=== PATIENT | male | born 1970 | race Caucasian/White ===

== ENCOUNTER 2025-01-26 18:04 | Inpatient (IN) ==
--- NOTE | 2025-01-26 19:05 | Emergency Department Note ---
Impression & Plan Hemorrhage after tooth extraction ED Provider Note NAME: PAULO CHAVEZ AGE: 54 SEX: M : 1970 ARRIVES VIA: Ambulance INFORMANT: Patient, ED PROVIDER(S): Alejandra Cabrera MD CHIEF COMPLAINT: Bleeding HPI: This is a 54-year-old male presenting for uncontrolled bleeding from with wisdom teeth removal. Patient had forward to be removed today at an outpatient dental office. He took out the gauze and there was significant bleeding that was uncontrolled. It was coming out of his mouth. ROS: See above HPI for pertinent positives & negatives. A total of 10 systems reviewed and were otherwise negative. PAST MEDICAL HISTORY: See Below PAST SURGICAL HISTORY: See Below FAMILY HISTORY: See Below SOCIAL HISTORY: See Below HOME MEDICATIONS: See Below ALLERGIES: See Below VITALS: See Below PHYSICAL EXAMINATION: General: resting comfortably in no acute distress Head: Normocephalic and atraumatic Eyes: Normal inspection, extraocular muscles intact Ear, nose, throat: Swollen lower lip, bleeding 2 seconds x 4 Neck: Normal range of motion Respiratory: lungs clear to auscultation bilaterally Cardiovascular: Regular rate/rhythm, no murmur GI: soft, nontender, no guarding or rebound Extremities: nontender, moves all extremities Neuro: The patient awake and alert, appropriately conversive, no focal deficits, symmetric faces Skin: Warm, dry, and intact MEDICAL DECISION MAKING: This is a 54-year-old male presenting for bleeding from with deep. He has all 4 areas that are slowly oozing. Top sockets are slow oozing, bottom 2 are more brisk. - Patient initially started with TXA mouthwash. This was initially unsuccessful. - Trialed TXA soaked gauze and pressure. This did help the top 2 teeth but the bottom teeth were still bleeding. - Discussed with Dr. Ayden Jesus who states he is not available for consultation currently but could be there in the morning. He recommends discussion with his FS physicians directly. Discussed with Dr. Vinson, who advised if uncontrolled bleeding to do lidocaine with epinephrine injection just posterior/lateral to the last molars -Surgicel was used to pack the bottom sockets. This is helped the bleeding. He is now having no significant symptoms. - Will discharge patient home -Patient expresses concern as he is blind bilaterally. He states he does not know how to take the medication as they are not tactilely label for him. He notes that he was given multiple pills with clear instruction and he cannot read the instructions. - Discussed case management who states that patient's county home demonstrator/help would require PCP referral there is nothing from ER that can be arranged - Attempted to call HIPAA contact who does not answer. Patient is uncomfortable with discharge home due to safety concerns -Discussed with Dr. Poole Differential diagnosis: Dry socket, hemorrhage after tooth extraction, Eleuterio's angina Diagnostics interpreted by me: ECG: None Cardiac Monitoring: An order was placed for continuous cardiac monitoring. The monitor shows a rate of 88 with sinus rhythm. Past Med/Surg History Problem List Hemorrhage after tooth extraction (Acute) Social History Smoking Status: Never smoker Hx Alcohol Use: No Hx Substance Use: No Preferred Language: Mexican Communication Ability: Effective Sanitation Worker Required: No Beliefs That Will Affect Care: None Current Living Situation: Alone Feels Safe at Home: Yes Assistive Devices: None Allergies Allergies Allergy/AdvReac Type Severity Reaction Status Date / Time atropine Allergy Unknown ON Verified 01/26/25 23:24 [employer] MED LIST Home Meds Home Medications Medication Instructions Recorded Confirmed amoxicillin 875 mg tablet 875 mg PO BID 01/26/25 01/26/25 dorzolamide 22.3 mg-timolol 6.8 1 drp OPB BID 01/26/25 01/26/25 mg/mL eye drops indapamide 2.5 mg tablet 2.5 mg PO DAILY 01/26/25 01/26/25 lisinopril 40 mg tablet 40 mg PO DAILY 01/26/25 01/26/25 propylene glycol 1 %-glycerin 0.3 1 drp OPB DIRECTED PRN Dry Eyes 01/26/25 01/26/25 % eye drops (Artificial Tears (glycerin-peg)) spironolactone 25 mg tablet 25 mg PO DAILY 01/26/25 01/26/25 Results & Data (ED) Vital Signs Vital Signs - 24 hr 01/26/25 18:09 01/26/25 19:58 01/26/25 21:00 Temperature 36.9 C Temperature Source Temporal Artery Scan Pulse Rate 83 Pulse Rate [Apical] 88 64 Respiratory Rate 19 19 19 Respiratory Effort / Characteristics Non-Labored Spontaneous Non-Labored Spontaneous Non-Labored Spontaneous Respiratory Depth Normal Normal Normal Respiratory Pattern Regular Blood Pressure 128/82 Blood Pressure [Right Arm] 104/66 144/95 H Blood Pressure Mean 97 Blood Pressure Mean [Right Arm] 78 111 Pulse Oximetry 97 96 94 Oxygen Delivery Method Room Air Room Air Room Air Sepsis Recent Fever Within 48 Hours No Sepsis New/Unexplained Change in Mental Status N/A Sepsis Action Taken by Nursing No Action Required 01/26/25 22:51 Temperature Temperature Source Pulse Rate Pulse Rate [Apical] 92 H Respiratory Rate 19 Respiratory Effort / Characteristics Non-Labored Spontaneous Respiratory Depth Normal Respiratory Pattern Regular Blood Pressure Blood Pressure [Right Arm] 121/70 Blood Pressure Mean Blood Pressure Mean [Right Arm] 87 Pulse Oximetry 98 Oxygen Delivery Method Room Air Sepsis Recent Fever Within 48 Hours Sepsis New/Unexplained Change in Mental Status Sepsis Action Taken by Nursing Laboratory Data 01/27/25 11:12 01/27/25 11:12 Lab Results 01/26/25 Range/Units Unknown WBC 22.27 H (4.8-10.8) K/ul RBC 4.40 L (4.70-6.10) M/uL Hgb 11.8 L (14.0-18.0) g/dl Hct 35.7 L (42.0-52.0) % MCV 81.1 (80.0-100.0) fL MCH 26.8 (25.0-34.0) pg MCHC 33.1 (32.0-36.0) g/dL RDW Std Deviation 42.0 (36.4-46.3) fL RDW Coeff of Anjum 14.3 (11.5-14.5) % Plt Count 455 H (130-400) K/uL MPV 10.1 (9.4-12.4) fL Immature Gran % (Auto) 2.3 % Neut % (Auto) 79.1 % Lymph % (Auto) 8.6 % Blaine % (Auto) 8.7 % Eos % (Auto) 0.6 % Baso % (Auto) 0.7 % Neut # (Auto) 17.61 H (1.40-6.50) K/uL Lymph # (Auto) 1.91 (1.20-3.40) K/uL Blaine # (Auto) 1.93 H (0.11-0.59) K/uL Eos # (Auto) 0.14 (0.00-0.50) K/uL Baso # (Auto) 0.16 (0.00-0.20) K/uL Immature Gran # (Auto) 0.52 H (0.01-0.20) K/uL PT 10.8 (9.0-12.0) Seconds INR 1.0 (0.9-1.1) Sodium 136 (136-145) mmol/L Potassium 4.6 (3.5-5.1) mmol/L Chloride 102 (98-107) mmol/L Carbon Dioxide 25 (21-32) mmol/L Anion Gap 9 (3-11) BUN 22 (6-23) mg/dl Creatinine 1.43 H (0.6-1.4) mg/dl Est Cr Clr Drug Dosing Not Reportable eGFR 57.51 BUN/Creatinine Ratio 15.4 (10-20) Glucose 103 H (70-99(Fasting)) mg/dl Calcium 9.0 (8.6-10.3) mg/dl Administered Medications Discontinued Medications Amoxicillin (Amoxicillin 875 Mg Tab) 875 mg PO BIDM [facility]; Protocol Stop: 02/06/25 07:59 Last Admin: 01/27/25 17:00 Dose: 875 mg Documented By: Admin: 01/27/25 09:53 Dose: 875 mg Documented By: DEIRDRE Sterile Water 50 ml/Tranexamic Acid 5,000 mg/BARCODE IDENTIFIER 1 each 0 ml MT ONE ONE Stop: 01/26/25 18:33 Last Admin: 01/26/25 19:23 Dose: 10 ml Documented By: LICO Dorzolamide/Timolol (Dorzolamide/Timolol 22.3/6.8mg/Ml 10 Ml Btl) 1 drops OPB BID [facility] Stop: 02/26/25 08:59 Last Admin: 01/27/25 09:56 Dose: 1 drops Documented By: DEIRDRE Gelatin (Gelatin Sponge 12-7mm) Confirm Administered Dose 2 each .ROUTE .STK-MED ONE Stop: 01/26/25 21:05 Last Admin: 01/26/25 22:48 Dose: Not Given Documented By: LICO Gelatin (Gelatin Sponge 12-7mm) 1 each EXT NOW ONE Stop: 01/26/25 22:18 Last Admin: 01/26/25 22:48 Dose: 1 each Documented By: LICO Gelatin (Gelatin Sponge 12-7mm) 1 each EXT NOW ONE Stop: 01/26/25 22:19 Last Admin: 01/26/25 22:48 Dose: 1 each Documented By: LICO Indapamide (Indapamide 1.25 Mg Tab) 2.5 mg PO DAILY [facility]LSY Stop: 02/26/25 08:59 Last Admin: 01/27/25 11:47 Dose: 2.5 mg Documented By: DEIRDRE Lidocaine/Epinephrine (Lidocaine 1%/Epinephrine 1:100,000 50 Ml Vial) Confirm Administered Dose 1 ml .ROUTE .STK-MED ONE Stop: 01/26/25 21:55 Last Admin: 01/26/25 22:51 Dose: 1 ml Documented By: LICO Tranexamic Acid (Txa 10% Non-Iv Routes 100 Mg/Ml Vial) 1,000 mg TOP ONE ONE Stop: 01/26/25 18:31 Last Admin: 01/26/25 19:46 Dose: 1,000 mg Documented By: LICO Tranexamic Acid (Txa 10% Non-Iv Routes 100 Mg/Ml Vial) Confirm Administered Dose 1,000 mg .ROUTE .STK-MED ONE Stop: 01/26/25 21:41 Last Admin: 01/26/25 22:51 Dose: 1,000 mg Documented By: LICO Tranexamic Acid (Txa 10% Non-Iv Routes 100 Mg/Ml Vial) 1,000 mg TOP ONE ONE Stop: 01/26/25 22:50 Last Admin: 01/26/25 22:51 Dose: Not Given Documented By: LICO Discharge Plan Visit Data Chief Complaint: Dental/Oral Stated Complaint: Dental/Oral ED Provider: Alejandra Cabrera Discharge Problem: Hemorrhage after tooth extraction Patient Disposition: Admitted As Inpatient Condition: Good Discharge Instructions Interventions: ED Discharge Assessment Last Done: 01/27/25 03:00
[2025-01-26] MEDS: [UNRECOGNIZED DRUG - OTHER] MT ONE (19:23)
[2025-01-26] MEDS: WATER MT ONE (19:23)
[2025-01-26] MEDS: STERILE MT ONE (19:23)
[2025-01-26] MEDS: IDENTIFIER MT ONE (19:23)
[2025-01-26] MEDS: TXA 10% Non-IV Routes 100 MG/ML VIAL TOP ONE ×2 (19:46→22:51)
[2025-01-26 19:48] LABS: Hematocrit (blood only) 35.7 % (42.0-52.0); Hemoglobin 11.8 g/dl (14.0-18.0); Immature Granulocytes # (auto) 0.52 K/uL (0.01-0.20); Immature Granulocytes % (auto) 2.3 %; Mean Corpuscular Hemoglobin 26.8 pg (25.0-34.0); Mean Corpuscular Volume 81.1 fL (80.0-100.0); Platelet Count 455 K/uL (130-400); RDW Standard Deviation 42.0 fL (36.4-46.3); Red Blood Count 4.40 M/uL (4.70-6.10); White Blood Count 22.27 K/ul (4.8-10.8)
[2025-01-26 20:06] LABS: Anion Gap 9 (3-11); Blood Urea Nitrogen 22 mg/dl (6-23); Calcium 9.0 mg/dl (8.6-10.3); Carbon Dioxide 25 mmol/L (21-32); Chloride 102 mmol/L (98-107); Glucose 103 mg/dl (70-99(Fasting)); Potassium 4.6 mmol/L (3.5-5.1); Sodium 136 mmol/L (136-145)
[2025-01-26 20:15] LABS: INR 1.0 (0.9-1.1); Prothrombin Time 10.8 Seconds (9.0-12.0)
[2025-01-26] MEDS: GELATIN SPONGE 12-7MM EXT ONE ×2 (22:48)
[2025-01-26] MEDS: GELATIN SPONGE 12-7MM ONE (22:48)
[2025-01-26] MEDS: TXA 10% Non-IV Routes 100 MG/ML VIAL ONE (22:51)
[2025-01-26] MEDS: LIDOCAINE 1%/EPINEPHRINE 1:100,000 50 ML VIAL ONE (22:51)
--- NOTE | 2025-01-27 01:31 | History & Physical Report ---
Date of Service January 27, 2025 Assessment & Plan (1) Hemorrhage after tooth extraction: Plan: 54yo male s/p extraction x 5 earlier today presents with bleeding at extraction site. Now controlled following TXA mouth rinse and compression with gauze. Patient HD stable. No bleeding noted at present #Hemorrhage after tooth extraction -Patient needs assistance at home to set up his medications and to help him with post-operative care. He is legally blind and his friend should be available tomorrow -Full liquid diet as tolerated -Compression with moist gauze if bleeding reoccurs -Ice to the face -Keep HOB elevated, maintain aspiration precautions -Tylenol as needed for pain -Continue Amoxicillin as prescribed -Case management consultation appreciated -If patient rebleeds would consult OMFS #Hypertension - BP 115/68, mild elevation of Cr, unknown baseline -Hold Lisinopril and SPironolactone for now -Repeat chemistry in AM History of Present Illness Chief Complaint: oral bleeding Primary Care Provider: Jamil Tompkins MD Jamli Tse is a 54yo legally blind male presenting with bleeding from his mouth following multiple dental extractions. Patient had 5 teeth extracted earlier today - 4 wisdom teeth and 1 molar. Performed at [facility] earlier today. He reports that upon returning home he developed bleeding from the extraction sites. Patient is legally blind and his pharmaceutical engineer did not set up his medications and mouth rinse for him. In the ER patient noted to have bleeding at the extraction sites. He was treated with TXA mouthwash followed by TXA soaked gauze. He did consult with Oral Surgery- Dr. King. Bleeding ultimately stopped at the sockets were packed with gauze. Attempts made to discharge the patient home, however, he lives alone and is legally blind and his medications and treatments weren't properly set up for him at home so he is unable to go home tonight. Allergies Allergy/AdvReac Type Severity Reaction Status Date / Time atropine Allergy Unknown ON Verified 01/26/25 23:24 [employer] Home Medications Medication Instructions Recorded Confirmed Type amoxicillin 875 mg tablet 875 mg PO BID 01/26/25 01/26/25 History dorzolamide 22.3 mg-timolol 6.8 1 drp OPB BID 01/26/25 01/26/25 History mg/mL eye drops indapamide 2.5 mg tablet 2.5 mg PO DAILY 01/26/25 01/26/25 History lisinopril 40 mg tablet 40 mg PO DAILY 01/26/25 01/26/25 History propylene glycol 1 %-glycerin 0.3 1 drp OPB DIRECTED PRN Dry Eyes 01/26/25 01/26/25 History % eye drops (Artificial Tears (glycerin-peg)) spironolactone 25 mg tablet 25 mg PO DAILY 01/26/25 01/26/25 History Past Med/Surg History Problem List Hemorrhage after tooth extraction (Acute) Social History Smoking Status: Unknown if ever smoked Feels Safe at Home: Yes Review of Systems Review of Systems: All systems reviewed & are unremarkable except as noted in HPI & below Physical Exam Physical Exam: General: patient resting comfortably, NAD, non-toxic in appearance, AA&O x 4 Skin: warm, dry, intact, no rashes or lesions HEENT: no obvious bleeding at present, some facial swelling Heart: +S1/S2, regular, no m/r/g Lungs: equal air entry bilaterally, no rales/rhonchi/wheezes Abd: +BS, soft, NT/ND, no masses/organomegaly/ascites Ext: warm, 2+ pulses in UE/LE bilaterally, no clubbing/cyanosis or edema Neuro: nonfocal, patient AA&O x 4, speech intact, no facial droop, moving all extremities on command with equal strength 5/5 Results & Data Results & Data Vital Signs (Past 12 Hours) Vital Signs Temp Pulse Pulse Resp BP BP Pulse Ox 01/26/25 22:51 92 H 19 121/70 98 01/26/25 21:00 64 19 144/95 H 94 01/26/25 19:58 88 19 104/66 96 01/26/25 18:09 36.9 C 83 19 128/82 97 O2 Del Method 01/26/25 22:51 Room Air 01/26/25 21:00 Room Air 01/26/25 19:58 Room Air 01/26/25 18:09 Room Air Laboratory Results Laboratory Results WBC 22.27 K/ul (4.8-10.8) H 01/26/25 Unknown RBC 4.40 M/uL (4.70-6.10) L 01/26/25 Unknown Hgb 11.8 g/dl (14.0-18.0) L 01/26/25 Unknown Hct 35.7 % (42.0-52.0) L 01/26/25 Unknown MCV 81.1 fL (80.0-100.0) 01/26/25 Unknown MCH 26.8 pg (25.0-34.0) 01/26/25 Unknown MCHC 33.1 g/dL (32.0-36.0) 01/26/25 Unknown RDW Std Deviation 42.0 fL (36.4-46.3) 01/26/25 Unknown RDW Coeff of Anjum 14.3 % (11.5-14.5) 01/26/25 Unknown Plt Count 455 K/uL (130-400) H 01/26/25 Unknown MPV 10.1 fL (9.4-12.4) 01/26/25 Unknown Immature Gran % (Auto) 2.3 % 01/26/25 Unknown Neut % (Auto) 79.1 % 01/26/25 Unknown Lymph % (Auto) 8.6 % 01/26/25 Unknown Coffey % (Auto) 8.7 % 01/26/25 Unknown Eos % (Auto) 0.6 % 01/26/25 Unknown Baso % (Auto) 0.7 % 01/26/25 Unknown Neut # (Auto) 17.61 K/uL (1.40-6.50) H 01/26/25 Unknown Lymph # (Auto) 1.91 K/uL (1.20-3.40) 01/26/25 Unknown Coffey # (Auto) 1.93 K/uL (0.11-0.59) H 01/26/25 Unknown Eos # (Auto) 0.14 K/uL (0.00-0.50) 01/26/25 Unknown Baso # (Auto) 0.16 K/uL (0.00-0.20) 01/26/25 Unknown Immature Gran # (Auto) 0.52 K/uL (0.01-0.20) H 01/26/25 Unknown PT 10.8 Seconds (9.0-12.0) 01/26/25 Unknown INR 1.0 (0.9-1.1) 01/26/25 Unknown Sodium 136 mmol/L (136-145) 01/26/25 Unknown Potassium 4.6 mmol/L (3.5-5.1) 01/26/25 Unknown Chloride 102 mmol/L (98-107) 01/26/25 Unknown Carbon Dioxide 25 mmol/L (21-32) 01/26/25 Unknown Anion Gap 9 (3-11) 01/26/25 Unknown BUN 22 mg/dl (6-23) 01/26/25 Unknown Creatinine 1.43 mg/dl (0.6-1.4) H 01/26/25 Unknown Est Cr Clr Drug Dosing Not Reportable 01/26/25 Unknown eGFR 57.51 01/26/25 Unknown BUN/Creatinine Ratio 15.4 (10-20) 01/26/25 Unknown Glucose 103 mg/dl (70-99(Fasting)) H 01/26/25 Unknown Calcium 9.0 mg/dl (8.6-10.3) 01/26/25 Unknown PG Care Time/CCT Total # of Minutes Spent Total Time Spent with Patient: Total time spent is greater than 50% in coordination of care (as documented) at patient's floor/unit and/or counseling patient: Coding Level of Care Code 27319 INT INP/OBS CARE 2MIN Diagnoses Hemorrhage after tooth extraction K91.840
[2025-01-27] MEDS ORDERED: ACETAMINOPHEN 325 MG TAB PO PRN (03:21)
[2025-01-27] MEDS ORDERED: ONDANSETRON INJ 2 MG/ML 2 ML VIAL IV PRN (03:21)
[2025-01-27] MEDS: AMOXICILLIN 875 MG TAB PO SCH (09:53)
[2025-01-27] MEDS: DORZOLAMIDE/TIMOLOL 22.3/6.8MG/ML 10 ML BTL OPB SCH (09:56)
--- NOTE | 2025-01-27 10:43 | Hospitalist Progress Note ---
Date of Service January 27, 2025 Assessment & Plan (1) Hemorrhage after tooth extraction: Plan: 54yo male s/p extraction x 5 earlier today presents with bleeding at extraction site. Now controlled following TXA mouth rinse and compression with gauze. Patient HD stable. No bleeding noted at present #Hemorrhage after tooth extraction -Patient needs assistance at home to set up his medications and to help him with post-operative care. He is legally blind -Full liquid diet as tolerated -Compression with moist gauze if bleeding reoccurs -Ice to the face -Keep HOB elevated, maintain aspiration precautions -Tylenol as needed for pain -Continue Amoxicillin as prescribed -Case management consultation appreciated -d/w CM today, unfortunately pt has no one available to pick him up and help him today and doesn't know when he will have someone available. -If patient rebleeds would consult OMFS #Leukocytosis -S/P tooth extraction, currently on Amoxicillin -Repeat CBC pending this AM to trend WBC count, afebrile and HD stable #Hypertension - BP 115/68, mild elevation of Cr, unknown baseline -Hold Lisinopril and Spironolactone for now -Repeat chemistry in AM Continue hospital stay until safe discharge plan in place. CM involved. Trend labs. Admission and Anticipated Discharge Date Admission Date: January 27, 2025 Subjective Patient seen on rounds this morning. Reports that he isn't sure when he can return home to his apartment due to issues with someone coming to assist setting his apartment up. He has had no further hemorrhaging/bleeding from his incisions. Pain controlled. Denies cp or dyspnea. Afebrile. Review of Systems 2 Review of Systems: All systems reviewed and are unremarkable except as noted in HPI and below. Denies fever, chills, fatigue, headache, nasal congestion, sore throat, cough, chest pain, shortness of breath, palpitations, orthopnea, PND, abdominal pain, n/v/d, constipation, dysuria, hematuria, frequency, back pain, joint pain or swelling, skin lesions or rashes. Physical Exam 2 Physical Exam: GENERAL: 54 yo obese middle aged WM. No distress. MOUTH: obvious swelling, difficult to visualize incision/extraction sites but no active bleeding observed LUNGS: Clear to auscultation bilaterally. No W/R/R. CARDIOVASCULAR: Regular rate and rhythm. SKIN: Warm, dry, intact. No rashes or lesions. Results & Data Results & Data Vital Signs (Past 12 Hours) Vital Signs Temp Pulse Pulse Resp BP Pulse Ox O2 Del Method 01/27/25 08:19 36.7 C 92 H 16 131/82 97 Room Air 01/27/25 03:22 36.3 C L 93 H 18 134/81 100 Room Air 01/27/25 03:00 70 18 124/69 98 Room Air 01/27/25 02:00 72 18 115/68 98 Room Air 01/27/25 01:00 70 19 121/77 97 Room Air 01/27/25 00:00 70 17 130/76 99 Room Air 01/26/25 22:51 92 H 19 121/70 98 Room Air Laboratory Results 01/26/25 Unknown 01/26/25 Unknown PG Care Time/CCT Total # of Minutes Spent Total Time Spent with Patient: Total time spent is greater than 50% in coordination of care (as documented) at patient's floor/unit and/or counseling patient: Coding Level of Care Code None Diagnoses Hemorrhage after tooth extraction K91.840
[2025-01-27 11:21] LABS: Hematocrit (blood only) 38.2 % (42.0-52.0); Hemoglobin 12.6 g/dl (14.0-18.0); Immature Granulocytes # (auto) 0.32 K/uL (0.01-0.20); Immature Granulocytes % (auto) 2.0 %; Mean Corpuscular Hemoglobin 27.0 pg (25.0-34.0); Mean Corpuscular Volume 81.8 fL (80.0-100.0); Platelet Count 504 K/uL (130-400); RDW Standard Deviation 42.0 fL (36.4-46.3); Red Blood Count 4.67 M/uL (4.70-6.10); White Blood Count 16.07 K/ul (4.8-10.8)
[2025-01-27 11:39] LABS: Anion Gap 8 (3-11); Blood Urea Nitrogen 21 mg/dl (6-23); Calcium 9.4 mg/dl (8.6-10.3); Carbon Dioxide 27 mmol/L (21-32); Chloride 101 mmol/L (98-107); Glucose 94 mg/dl (70-99(Fasting)); Potassium 4.6 mmol/L (3.5-5.1); Sodium 136 mmol/L (136-145)
[2025-01-27] MEDS: INDAPAMIDE 1.25 MG TAB PO SCH (11:47)
--- NOTE | 2025-01-27 16:38 | Discharge Summary ---
Discharge Summary Date of Service January 27, 2025 Principal Dx & Hospital Course #1 = Principal Diagnosis (1) Hemorrhage after tooth extraction: 54yo male s/p extraction x 5 earlier today presents with bleeding at extraction site. Now controlled following TXA mouth rinse and compression with gauze. Patient HD stable. No bleeding noted at present #Hemorrhage after tooth extraction -Patient needs assistance at home to set up his medications and to help him with post-operative care. He is legally blind -Full liquid diet as tolerated -Compression with moist gauze if bleeding reoccurs -Ice to the face -Keep HOB elevated, maintain aspiration precautions -Tylenol as needed for pain -Continue Amoxicillin as prescribed -Case management consultation appreciated - transportation was arranged with a friend this afternoon who will pick him up and get him settled in at home -follow up with his oral surgeon #Leukocytosis -S/P tooth extraction, currently on Amoxicillin -Repeat CBC with improvement - 22-->16K Mild anemia and Hg is increased overnight. Baseline not known. #Hypertension - BP 115/68, mild elevation of Cr, unknown baseline - Cr improved from 1.43-->1.23 - continue spironolactone and lisinopril Admission HPI Per Admitting Provider Jamil Tse is a 54yo legally blind male presenting with bleeding from his mouth following multiple dental extractions. Patient had 5 teeth extracted earlier today - 4 wisdom teeth and 1 molar. Performed at [facility] earlier today. He reports that upon returning home he developed bleeding from the extraction sites. Patient is legally blind and his ceiling insulation blower did not set up his medications and mouth rinse for him. In the ER patient noted to have bleeding at the extraction sites. He was treated with TXA mouthwash followed by TXA soaked gauze. He did consult with Oral Surgery- Dr. King. Bleeding ultimately stopped at the sockets were packed with gauze. Attempts made to discharge the patient home, however, he lives alone and is legally blind and his medications and treatments weren't properly set up for him at home so he is unable to go home tonight. Discharge Plan Discharge Items Patient Disposition: Home - Self-Care Reason For Visit: S/P WISDOM TEETH EXTRACTION - BLEEDING Discharge Diagnosis: Bleeding after dental extraction Condition on Discharge: Good Activity: Resume your previous activity Non-emergency contact: Primary Care Provider and Surgeon Call non-emergency contact if: you have any medication questions and your symptoms worsen Follow-up/Referrals: Jamil Tompkins MD [Primary Care Provider] - Diet: Full liquid Addtl Attending Provider Instructions: You were treated for postop dental bleeding You may use ice as needed for pain, bite on gauze for bleeding as needed Continue the antibiotics as previously prescribed (amoxicillin) Please follow up with your dental surgeon as soon as possible Pending Studies at Discharge: No Stand-Alone Forms: My [facility], Smoking Cessation Medications and DC Order Prescriptions: Continued indapamide 2.5 mg tablet 2.5 mg PO DAILY spironolactone 25 mg tablet 25 mg PO DAILY amoxicillin 875 mg tablet 875 mg PO BID Rx Instructions: STARTED 01/26/25 FOR 5 DAYS lisinopril 40 mg tablet 40 mg PO DAILY dorzolamide-timolol 22.3-6.8 mg/mL Drops 1 drp OPB BID Artificial Tears(glycerin-peg) 1-0.3 % Drops 1 drp OPB DIRECTED PRN (Reason: Dry Eyes) Discharge Orders: Discharge Order (Routine); Ordered 01/27/25 Ordered By: Camelia Mcgill Admission Data Admit Date/Time: 01/27/25 01:22 Attending Provider: Camelia Mcgill Admit Provider: Sharon Poole Primary Care Provider: Jamil Tompkins Other Providers: Sharon Poole Hospital Stay Data Consultations 01/27/25 00:58 ED Decision to Admit Stat Pending Results Patient Have Any Pending Studies at Discharge: No Discharge Instructions Given to Patient (Per Discharging Provider) You were treated for postop dental bleeding You may use ice as needed for pain, bite on gauze for bleeding as needed Continue the antibiotics as previously prescribed (amoxicillin) Please follow up with your dental surgeon as soon as possible Total Time Total Time Spent Total Time Spent (In Minutes): <30 min Coding Level of Care Code 64230 IN/OBS DISCH 30 MIN/LESS Diagnoses Hemorrhage after tooth extraction K91.840
== END 2025-01-27 18:18 | disposition home or self-care (01) | DRG 909 ==
LOC: ED 18:04 → 3E 01-27 01:22 → SUATTDRO 01-27 01:22 → 3E 01-27 03:00